=== PATIENT | female | born 1990 | race Caucasian/White ===

== ENCOUNTER 2019-01-18 03:38 | Emergency (ER) | payer SELFPAY ==
[2019-01-18 03:47] VITALS: BP 133/89; PULSE 93; RESP 18; TEMP 36.8; O2SAT 95; BMI 24.2
--- NOTE | 2019-01-18 03:52 | RAD_ITS ---
STUDY: X-RAY CHEST REASON FOR EXAM: Female, 28 years old. Left upper chest pain radiating to the neck. Cough since then. TECHNIQUE: Frontal and lateral views of the chest. COMPARISON: None. FINDINGS: The lungs are clear and expanded. There is no demonstrated pleural abnormality. Normal size heart. Normal mediastinum and franco. Normal visualized pulmonary arteries. Normal visualized aortic arch and descending thoracic aorta. Normal visualized thoracic spine. Normal visualized ribs, clavicles, and shoulders. There is no demonstrated abnormality of the visualized soft tissue structures of the upper abdomen. RAD/Chest PA and Lateral IMPRESSION: Normal x-ray examination of the chest. Electronically Signed: Jonathan Rodriguez MD at 4:43 EDT , Service support ,
--- NOTE | 2019-01-18 04:35 | EKG12_ITS ---
Test Reason : CP Blood Pressure : / mmHG Vent. Rate : 076 BPM Atrial Rate : 076 BPM P-R Int : 138 ms QRS Dur : 076 ms QT Int : 378 ms P-R-T Axes : 058 082 056 degrees QTc Int : 425 ms Normal sinus rhythm Normal ECG Confirmed by MARGARITA JAMES, MOIRA ([id number]), clinical editor DEANGELO SNEED ([id number] on 01/19/2019 4:22:14 PM Referred By: CEM Confirmed By:MOIRA AVILA MD
[2019-01-18 04:41] VITALS: BP 116/100; PULSE 72; RESP 11; O2SAT 95
--- NOTE | 2019-01-18 04:58 | ED.VISSUMM ---
- ER Visit Summary Date of Service: 01/18/19 Chief Complaint: Left-sided chest discomfort History of Present Illness: The patient is a 28 F states that she has been coughing for several days. On started developing left-sided chest discomfort worse with movement, not specifically pleuritic. [facility] started on Medrol Dosepak which I believe she started either Saturday or Saturday morning. And states it has made a significant difference as of yet. She is never had a DVT or PE. There is no significant family history of any type of clotting disorder. She denies any hemoptysis. She is had no recent travel, surgery or immobilization. No calf pain or swelling. She does not feel short of breath. Physical Examination: Vital signs are stable. She is afebrile. Her pulse ox 95% on room air. No hypoxia. H EENT exam unremarkable. Neck nontender no lymphadenopathy. Lungs clear to auscultation bilaterally. Heart regular rate and rhythm no murmur rate about 80. Chest wall has mild reproducible sternal and parasternal tenderness. There is no ecchymosis or bruising. There is subcu air crepitance. Abdomen soft nontender. Normal bowel sounds no peritoneal signs. Extremities moves all 4. Equal symmetrical radial pulses. [address] and [address] strength. Dorsi plantar flexion intact. Calves are nontender without edema nor cords. No signs of any DVTs. Back exam nontender. Neurologically she is awake alert with no focal motor deficits. Test Results: Chest x-ray AP lateral view shows no acute abnormality. Normal cardiac silhouette mediastinum. Read both by myself and radiologist. EKG sinus rhythm rate of 77 no acute signs of [place] or ischemia. No S1 Q3 T3. D-dimer was negative. Emergency Department Course and Treatment: Repeat exam patient is doing well at 0 500. Repeat exam at 05 49 patient is doing well will be discharged home. Treatment Plan: Continue her Medrol Dosepak. Follow-up with not improving. Return if worse. Disposition: Discharge Impression: Status post URI with pleurisy This note was generated with [employer] dictation software. It may contain incorrect words, spelling, and punctuation that were not noted in review of the chart prior to signing ED Disposition - Plan for ED Patient: Referrals: Care Physician,No Primary [Primary Care Provider] -
--- NOTE | 2019-01-18 05:02 | ED.DCSUM_ITS ---
- ER Visit Summary Date of Service: 01/18/19 Chief Complaint: Left-sided chest discomfort History of Present Illness: The patient is a 28 F states that she has been coughing for several days. On started developing left-sided chest discomfort worse with movement, not specifically pleuritic. [facility] started on Medrol Dosepak which I believe she started either Saturday or Saturday morning. And states it has made a significant difference as of yet. She is never had a DVT or PE. There is no significant family history of any type of clotting disorder. She denies any hemoptysis. She is had no recent travel, surgery or immobilization. No calf pain or swelling. She does not feel short of breath. Physical Examination: Vital signs are stable. She is afebrile. Her pulse ox 95% on room air. No hypoxia. H EENT exam unremarkable. Neck nontender no lymphadenopathy. Lungs clear to auscultation bilaterally. Heart regular rate and rhythm no murmur rate about 80. Chest wall has mild reproducible sternal and parasternal tenderness. There is no ecchymosis or bruising. There is subcu air crepitance. Abdomen soft nontender. Normal bowel sounds no peritoneal signs. Extremities moves all 4. Equal symmetrical radial pulses. 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 Dorsi plantar flexion intact. Calves are nontender without edema nor cords. No signs of any DVTs. Back exam nontender. Neurologically she is awake alert with no focal motor deficits. Test Results: Chest x-ray AP lateral view shows no acute abnormality. Normal cardiac silhouette mediastinum. Read both by myself and radiologist. EKG sinus rhythm rate of 77 no acute signs of [place] or ischemia. No S1 Q3 T3. D-dimer was negative. Emergency Department Course and Treatment: Repeat exam patient is doing well at 0 500. Repeat exam at 05 49 patient is doing well will be discharged home. Treatment Plan: Continue her Medrol Dosepak. Follow-up with not improving. Return if worse. Disposition: Discharge Impression: Status post URI with pleurisy This note was generated with [employer] dictation software. It may contain incorrect words, spelling, and punctuation that were not noted in review of the chart prior to signing ED Disposition - Plan for ED Patient: Referrals: Care Physician,No Primary [Primary Care Provider] -
[2019-01-18 05:11] VITALS: BP 132/82; PULSE 75; RESP 11; TEMP 36.8; O2SAT 96
[2019-01-18 05:12] VITALS: BP 132/82; PULSE 74; RESP 11; TEMP 36.8; O2SAT 96
[2019-01-18 05:39] LABS: D-Dimer Quantitative (DVT/PE) < 0.27 FEU/ug/m (0.27-0.49)
--- NOTE | 2019-01-18 05:50 | ED.DEP ---
ED Disposition - Plan for ED Patient: Disposition: Home or Assisted Living Instructions: ED Chest Pain Pleurisy Referrals: John Vazquez MD [STAFF PHYSICIAN] - 1 Week if not improving Additional Instructions: Continue your steroid Dosepak that should decrease the inflammation along her left lung and chest discomfort. Follow-up with not improving return to ER feeling worse. Your EKG, chest x-ray and d-dimer tests were all normal today.
[2019-01-18 06:02] VITALS: BP 128/95; PULSE 74; PULSE 78; RESP 12; RESP 15; O2SAT 95
== END 2019-01-18 06:04 | disposition home or self-care (01) ==
PROVIDERS: Emergency Provider Emergency Medicine
DX: R09.1 Pleurisy (principal); Z72.0 Tobacco use
CPT/HCPCS: 71046; 85379; 93005; 99283; A4216

== ENCOUNTER 2019-01-19 12:52 | Emergency (ER) | payer SELFPAY ==
[2019-01-18 03:47] VITALS: BMI 24.2
[2019-01-19 12:55] VITALS: BP 122/83; PULSE 100; RESP 17; TEMP 36.8; O2SAT 94; BMI 24.0
--- NOTE | 2019-01-19 13:32 | CT_ITS ---
STUDY: CTA CHEST REASON FOR EXAM: Female, 28 years old. Chest pain. RADIATION DOSAGE (If Supplied By Facility): CTDIvol = ( 3.80 ) mGy, DLP = ( 151.61 ) mGycm TECHNIQUE: The examination was performed with the intravenous administration of Isovue 370 100ML IV. Post-processing of the angiographic images was performed, with multiplanar reformation and 3D reconstruction. Individualized dose optimization techniques were used for this CT. COMPARISON: None. FINDINGS: Normal enhancement of the main pulmonary artery and right and left pulmonary arteries. There is a small lobar filling defect in the right upper lobe artery consistent with pulmonary embolus. There is no demonstrated pulmonary embolism. Normal thoracic aorta and visualized great vessels. There is no demonstrated aortic dissection. Normal heart and pericardium. Normal mediastinum. Normal hilar regions. Normal visualized trachea and bronchi. The lungs are well expanded. Normal pulmonary parenchyma. Normal pleura. Normal chest wall structures. Normal osseous structures. Normal visualized upper abdomen. CT/CTA Chest W/WO Contrast IMPRESSION: There is a small lobar filling defect in the right upper lobe artery consistent with pulmonary embolus (images #[id number] and #[id number]). Electronically Signed: Nam Haji, at 15:20 EDT Tel , Service support ,
--- NOTE | 2019-01-19 13:32 | EKG12_ITS ---
Test Reason : CP Blood Pressure : / mmHG Vent. Rate : 077 BPM Atrial Rate : 077 BPM P-R Int : 138 ms QRS Dur : 074 ms QT Int : 384 ms P-R-T Axes : 051 078 066 degrees QTc Int : 434 ms Normal sinus rhythm Normal ECG Confirmed by MARGARITA JAMES, MOIRA ([id number]), school photograph editor NICK BECKWITH ([id number]) on 01/20/2019 2:19:06 PM Referred By: JACQUELINE Confirmed By:MOIRA AVILA MD
[2019-01-19 13:52] LABS: Absolute Lymphocyte Count 1.93 X10^3/ul (0.83-4.51); Absolute Neutrophil Count 10.2 X10^3/uL (2.0-7.7); Basophil# 0.03 X10^3/uL; Basophil% 0.2 % (0-1); Eosinophil# 0.02 X10^3/uL; Eosinophils% 0.2 % (0-5); Hematocrit 47.9 % (37-47); Hemoglobin 16.1 g/dl (12.0-15.0); Lymphocyte # 1.93 X10^3/ul (4.0); Lymphocyte % 14.7 % (19-41); Mean Corp Hgb Conc 33.6 g/gl (32-36); Mean Corpuscular Hgb 30.9 pg (27.0-32.0); Mean Corpuscular Volume 91.9 fL (81-99); Mean Platelet Vol. 11.7 fl (6.2-12.0); Monocyte# 0.96 X10^3/uL; Monocyte% 7.3 % (0-10); Neutrophil # 10.15 X10^3/uL (2.7-7.7); Neutrophil % 77.3 % (47-70); POSITIVE COUNT NO; POSITIVE DIFFERENTIAL NO; POSITIVE MORPHOLOGY NO; Platelet Count 296 K/mm3 (150-450); RBC Distribution Width CV 12.7 % (11.6-14.6); RBC Distribution Width SD 42.5 fl (35.1-43.9); Red Blood Count 5.21 M/mm3 (4.2-5.4); White Blood Count 13.1 K/mm3 (4.4-11.0)
[2019-01-19 14:05] LABS: Anion Gap 5 (5-15); BUN 17 mg/dL (7-18); BUN/Creat Ratio 22.1 RATIO (10-20); Calcium,Total 9.2 mg/dL (8.5-10.1); Chloride 105 mmol/L (98-107); Creatinine, Serum 0.77 mg/dL (0.55-1.02); EST Glomerular Filtration Rate 94 mL/min (>60); Est Glom Filt Rate - Afr Amer 114 mL/min (>60); Estimated Creatinine Clearance 108.75 ml/min; Glucose 102 mg/dL (74-106); Potassium 3.8 mmol/L (3.5-5.1); Sodium Level 135 mmol/L (136-145)
[2019-01-19 14:10] LABS: Pregnancy, Serum, hCG Quali. NEGATIVE Negative (0-9 Nonpreg)
[2019-01-19 14:15] VITALS: BP 110/74; PULSE 85; RESP 20; O2SAT 97
[2019-01-19 15:38] VITALS: BP 104/75; PULSE 80; RESP 17; O2SAT 97
--- NOTE | 2019-01-19 16:29 | ED.DCSUM_ITS ---
- ER Visit Summary Date of Service: 01/19/19 Chief Complaint: History of Present Illness: The patient is a 28 F who was seen in the emergency department last night diagnosed with pleurisy. She states that she was prescribed Medrol. Last night she had a chest x-ray was negative and a d-dimer that was negative. Patient has no pulmonary embolism risk factors. She states that today she is developed a dull ache rating up to the left towards her neck. She also states that she woke this morning has a scratch on the right side of her chest. She also notes some radiation of pain to the right side. There is been no rash no other rashes. She had a recent cold with coughing fits. Pain actually began on night and seems to get better while laying on her left side. She states she returned today to the emergency department because the pain had changed and that was her discharge instructions to return if there is a change. Physical Examination: Afebrile vital signs stable Gen: Well-nourished well-developed Head: Normocephalic atraumatic Eyes: Perrl EOMI ENT: TMs clear no rhinorrhea moist mucous membranes Neck: Supple no lymphadenopathy no JVD nontender CVS: Regular rate rhythm no murmurs normal S1-S2 Respiratory: No distress clear to auscultation bilaterally chest nontender Abdomen: Soft nontender nondistended normal bowel sounds no masses Back: Nontender Extremity: Nontender no edema Skin: Normal color no rash Neuro: alert orientated ?3 CN II-XII intact normal strength sensation reflexes gait cerebellar Psych: Normal affect normal mood Test Results: EKG shows normal sinus rhythm at a rate of 76. Troponin is negative. White count 13.1 which is probably slightly elevated due to the Medrol. CTA of the chest was performed because of her coughing fits to rule out obvious dissection. This was negative for dissection. There was concern for filling defect on the right side but I think this is probably a contrast timing issue rather than true pulmonary embolism. It certainly would not explain any symptoms on the left side of her body. And again she had a negative d-dimer last night. She is not hypoxic tachypneic tachycardic. Patient will continue the Medrol also use anti-inflammatories return if worsening or concerns. AYANA score 0 Impression: 1. Acute chest pain This note was generated with [employer] dictation software. It may contain incorrect words, spelling, and punctuation that were not noted in review of the chart prior to signing ED Disposition - Plan for ED Patient: Disposition: Home or Assisted Living Instructions: ED Chest Pain Pleurisy
[2019-01-19 16:46] VITALS: BP 106/75; PULSE 75; RESP 20; O2SAT 97
== END 2019-01-19 16:46 | disposition home or self-care (01) ==
PROVIDERS: Emergency Provider Emergency Medicine
DX: R07.9 Chest pain, unspecified (principal); R09.1 Pleurisy; Z79.52 Long term (current) use of systemic steroids
CPT/HCPCS: 71275; 80048; 84484; 84703; 85025; 93005; 99284; Q9967; A4216

== ENCOUNTER 2019-01-22 01:03 | Emergency (ER) | payer SELFPAY ==
[2019-01-22 01:04] VITALS: BP 133/87; PULSE 80; RESP 16; TEMP 37.1; O2SAT 98; BMI 24.2
--- NOTE | 2019-01-22 01:16 | RAD_ITS ---
HISTORY: C/O MID STERNAL CHEST PAIN SINCE 2300. DIAGNOSED THIS WEEK WITH PLEURISY EXAM:XR Chest 1 View: Portable COMPARISON: Chest x-ray 01/18/2019 FINDINGS: No significant change. Normal heart size. Prominent lung volumes. No vascular congestion, pleural effusion, or acute pulmonary infiltration. No pneumothorax. The bony thorax appears intact. RAD/Chest 1 View (Portable) IMPRESSION: No acute cardiopulmonary disease. at 0141 Reported and signed by: Bran Stewart MD Electronically Signed: Bran Stewart, at 1:40 EDT Tel , Service support ,
--- NOTE | 2019-01-22 01:16 | EKG12_ITS ---
Test Reason : CP Blood Pressure : / mmHG Vent. Rate : 072 BPM Atrial Rate : 072 BPM P-R Int : 140 ms QRS Dur : 076 ms QT Int : 394 ms P-R-T Axes : 060 079 047 degrees QTc Int : 431 ms Normal sinus rhythm Normal ECG Confirmed by MARGARITA JAMES, MOIRA ([id number]), department editor NICK BECKWITH ([id number]) on 01/26/2019 11:30:10 AM Referred By: SHAZIA Confirmed By:MOIRA AVILA MD
--- NOTE | 2019-01-22 01:20 | ED.DCSUM_ITS ---
History of Present Illness Chief Complaint: Chest Pain Informant: Patient Onset: Today Narrative: She stated that is feeling normal today and then about 2 hours ago developed some substernal burning tightness. She took some ibuprofen. It is been constant. No other symptoms. No radiation. Only cardiac risk factor is she does smoke cigarettes. No PE or dissection risk factors. Was seen in the emergency department a few days ago with negative CT Angio of the chest to rule out dissection. She was also seen prior to that diagnosed with pleurisy and placed on Medrol Dosepak. At that time she was having some sharp pain in her left axillary region. She did mention that that pain is travel to her neck and her chest and wanted to make sure that things are okay. She has had negative lab workups. She did note that she had a friend of a pulmonary embolism 10 days ago and feels like this could be her nerves. Denies any recent trips. She stated she had fleeting pain in her right leg earlier today that went away. It was not constant. She is had no leg swelling. Past Medical History - Allergies and Home Meds Allergies/Adverse Reactions: Allergies No Known Allergies Allergy (Verified 01/19/19 12:53) Primary Care Physician: John Vazquez MD [Primary Care Provider] - Prior records reviewed: Yes Past Medical History: None Surgical History: - - Reviewed Lives: With Family Smoking Status: Former smoker Alcohol: None Drugs: None Review of Systems General: Denies: Chills, Fever, Sweats Eyes: Denies: Visual changes - bilaterally, Diplopia ENT: Denies: Rhinorrhea, Sore throat Cardiovascular: Reports: Chest pain. Denies: Palpitations, Heart racing Respiratory: Denies: Dyspnea, Cough, Dyspnea on exertion Gastrointestinal: Denies: Abdominal pain, Nausea, Vomiting, Diarrhea, Melena, Hematochezia Genitourinary: Denies: Dysuria, Hematuria, Frequency Musculoskeletal: Denies: Back pain, Extremity Pain Skin: Denies: Rash, Wounds Neurological: Denies: Headache, Weakness, Numbness Physical Exam Vital Signs/Narrative: Vital Signs Temp Pulse Resp BP Pulse Ox 01/22/19 01:04 98.7 F 80 16 133/87 H 98 General: Well nourished, Well developed, No Acute Distress Head: Normocephalic, Atraumatic Eyes: Perrl, EOMI ENT: Moist mucous membranes, No rhinorrhea Neck: Supple, Nontender Cardiovascular: Regular rate, Regular rhythm, No murmurs Respiratory: No distress, CTA bilaterally, Chest nontender Abdomen: Soft, Nontender, Nondistended, Normal bowel sounds Back: Nontender, Normal Inspection Extremities: Nontender, No edema, - - Lately normal lower extremity exam including pulses color and temperature. Negative for: Tenderness, Edema, Calf Tenderness Skin: Normal color, No rash Neurological: Alert, Oriented x3, Cranial nerves II-XII grossly intact, Normal Strength, Normal Sensation Psychological: Normal affect, Normal Mood Diagnostic/Tx/Re-eval - EKG Initial EKG Interpretation: Sinus Rhythm - Rate of 72. No ischemic findings. - Medical Decision Making Patient given dose of Tylenol. Repeat troponin chest x-ray obtained. Chest x- ray normal. Troponin negative. At this time I feel this is noncardiac. This could be anxiety related as she just lost a friend to a pulmonary embolism. She had a negative CT of her chest. I do not think she has a PE. She had negative D-dimers. She is not tachycardic. She has no pulse ox abnormalities. I feel she can be discharged. She is reassured. ED Disposition - Plan for ED Patient: Disposition: Home or Assisted Living Instructions: ED Chest Pain NonCardiac Referrals: John Vazquez MD [Primary Care Provider] -
[2019-01-22] MEDS: Acetaminophen 325 MG Tablet 650 MG PO (01:21)
[2019-01-22 02:12] VITALS: BP 105/74; PULSE 70; RESP 16; O2SAT 100
== END 2019-01-22 02:22 | disposition home or self-care (01) ==
PROVIDERS: Emergency Provider Emergency Medicine; Family Provider Family Medicine; PCP Family Medicine
DX: R07.9 Chest pain, unspecified (principal); F17.210 Nicotine dependence, cigarettes, uncomplicated
CPT/HCPCS: 71045; 84484; 93005; 99284